=== PATIENT | female | born 1985 | race Caucasian/White ===

== ENCOUNTER 2021-04-13 18:26 | Emergency (ER) | payer SELFPAY ==
[~2021-04-13 18:26] MED LIST: ULTRAM 50MG TAB50 MG PO; VIVARIN200 MG PO; ZOLOFT50 MG PO
[2021-04-13] MEDS ORDERED: DAILY-VITE1 EACH PO (18:45)
[2021-04-13 19:18] LABS: BASO # 0.03 (0.02-0.10); EOS # 0.17 (0.04-0.40); EOS % 1.7 % (1.0-5.0); HEMATOCRIT 40.6 % (37.0-47.0); HEMOGLOBIN 13.4 g/dL (12.5-16.0); LYMPH# 2.64 (1.50-4.00); MEAN CELL VOLUME 91 fl (78-100); MEAN CORPUSCULAR HEMOGLOBIN 30 pg (27-31); MEAN CORPUSCULAR HGB CONC 33 g/dL (33-37); MEAN PLATELET VOLUME 9.3 fl (7.4-10.4); MONO # 0.68 (0.20-0.80); NEU # 6.67 (1.40-6.50); PLATELET COUNT 340 K/mm3 (130-400); RED BLOOD COUNT 4.45 M/mm3 (4.10-5.30); RED CELL DISTRIBUTION WIDTH 12.5 % (11.5-14.5); WHITE BLOOD COUNT 10.2 K/mm3 (4.8-10.8)
[2021-04-13 19:28] LABS: ALBUMIN 3.6 g/dL (3.5-5.0)
[2021-04-13 19:29] LABS: POTASSIUM 3.6 mmol/L (3.5-5.1); SODIUM 143 mmol/L (136-145)
[2021-04-13 19:30] LABS: CALCIUM 8.7 mg/dL (8.3-10.5)
[2021-04-13 19:31] LABS: GLUCOSE 101 mg/dL (65-105); TOTAL PROTEIN 6.6 g/dL (6.4-8.3)
[2021-04-13 19:32] LABS: CARBON DIOXIDE 24 mmol/L (22-29)
[2021-04-13 19:33] LABS: TOTAL BILIRUBIN 0.2 mg/dL (0.2-1.2)
[2021-04-13 19:36] LABS: AST-SGOT 42 U/L (5-34)
[2021-04-13 19:38] LABS: ALCOHOL IN-HOUSE < 10 mg/dL (<10); ALT/SGPT 99 U/L (0-55)
[2021-04-13 20:16] LABS: PH-URINE 8.5 (5.0 - 8.0); URINE APPEARANCE CLOUDY; URINE BILIRUBIN NEGATIVE (NEGATIVE); URINE BLOOD 50 ery/uL (NEGATIVE); URINE COLOR YELLOW; URINE GLUCOSE NEGATIVE (NEGATIVE); URINE KETONE NEGATIVE (NEGATIVE); URINE LEUKOCYTE ESTERASE 1+ (NEGATIVE); URINE NITRATE NEGATIVE (NEGATIVE); URINE PROTEIN(semi-quant) 2+ mg/dL (NEGATIVE); URINE UROBILINOGEN NORMAL (NORMAL)
[2021-04-13 20:17] LABS: URINE MUCUS PRESENT (NOT PRESENT)
[2021-04-14 09:40] LABS: URINE APPEARANCE CLOUDY; URINE BILIRUBIN NEGATIVE (NEGATIVE); URINE BLOOD 250 ery/uL (NEGATIVE); URINE COLOR YELLOW; URINE GLUCOSE NEGATIVE (NEGATIVE); URINE KETONE NEGATIVE (NEGATIVE); URINE LEUKOCYTE ESTERASE 1+ (NEGATIVE); URINE MUCUS PRESENT (NOT PRESENT); URINE NITRATE NEGATIVE (NEGATIVE); URINE PROTEIN(semi-quant) 2+ mg/dL (NEGATIVE); URINE UROBILINOGEN NORMAL (NORMAL)
[2021-04-14] MEDS ORDERED: CEPHALEXIN500 M1 PO (10:39)
[2021-04-14 12:27] VITALS: BP 126/78
== END 2021-04-14 12:25 | disposition home or self-care (01) ==
LOC: ED 18:26
PROVIDERS: Family Medicine
DX: R82.71 Bacteriuria (principal); R31.29 Other microscopic hematuria; E86.9 Volume depletion, unspecified; J45.909 Unspecified asthma, uncomplicated; V89.2XXA Person injured in unspecified motor-vehicle accident, traffic, initial encounter
CPT/HCPCS: J0696; J1885; J7030